=== PATIENT | female | born 1975 | race Caucasian/White ===

== ENCOUNTER → 2018-10-01 08:03 | Outpatient (CLI) | payer OTHER, SELFPAY ==
--- NOTE | 2018-10-01 | DI.MG.S_ITS ---
BILATERAL DIGITAL SCREENING MAMMOGRAM 3D/2D WITH CAD: 10/01/2018 CLINICAL: Routine screening. Family history of breast cancer. No prior exams were available for comparison. The tissue of both breasts is extremely dense, which lowers the sensitivity of mammography. Current study was also evaluated with a Computer Aided Detection (CAD) system. No significant masses, calcifications, or other findings are seen in either breast. IMPRESSION: NEGATIVE There is no mammographic evidence of malignancy. A 1 year screening mammogram is recommended. This exam was interpreted at Station ID: [id number]. NOTE: For mammograms, a report in lay terms will be sent to the patient. Approximately 15% of breast malignancies will not be visualized mammographically. In the management of a palpable breast mass, a negative mammogram must not discourage biopsy of a clinically suspicious lesion. Electronically Signed By: Doris francois/kingston:10/01/2018 10:28:41 letter sent: Normal Exam ACR BI-RADS Category 1: Negative 3341F
== END ==
PROVIDERS: PCP Naturopath; Visit Provider Nurse Practitioner Obstetrics & Gynecology
DX: Z12.31 Encounter for screening mammogram for malignant neoplasm of breast (principal); Z80.3 Family history of malignant neoplasm of breast
CPT/HCPCS: 77063; 77067

== ENCOUNTER → 2020-02-10 13:05 | Outpatient (CLI) | payer SELFPAY ==
[2020-02-11 12:12] LABS: SARS-CoV19- IgM Negative (Negative)
== END ==
PROVIDERS: PCP Naturopath; Referring Provider Naturopath; Visit Provider Naturopath
DX: Z71.1 Person with feared health complaint in whom no diagnosis is made (principal)
CPT/HCPCS: 36415; 86769

== ENCOUNTER → 2020-09-09 16:08 | Outpatient (CLI) | payer OTHER, SELFPAY ==
[2020-09-09] MEDS: COVID-19 VACC(MODERNA-1)/PF 100 MCG/0.5 ML VIAL IM (16:19)
== END ==
PROVIDERS: PCP Naturopath; Visit Provider Internal Medicine
DX: Z23 Encounter for immunization (principal)
CPT/HCPCS: 0011A; 91301

== ENCOUNTER → 2020-10-06 14:54 | Outpatient (CLI) | payer OTHER, SELFPAY ==
[2020-10-06] MEDS: COVID-19 VACC #2, MRNA(MOD) 100 MCG/0.5 ML VIAL IM (15:01)
== END ==
PROVIDERS: PCP Naturopath; Visit Provider Internal Medicine
DX: Z23 Encounter for immunization (principal)
CPT/HCPCS: 0012A; 91301

== ENCOUNTER → 2021-10-10 10:59 | Outpatient (CLI) | payer OTHER, SELFPAY ==
--- NOTE | 2021-10-10 | DI.MG.S_ITS ---
BILATERAL DIGITAL SCREENING MAMMOGRAM 3D/2D WITH CAD: 10/10/2021 CLINICAL: Routine screening. Family history of breast cancer. Comparison is made to exam dated: 10/01/2018 [facility]. The tissue of both breasts is extremely dense, which lowers the sensitivity of mammography. Current study was also evaluated with a Computer Aided Detection (CAD) system. No significant masses, calcifications, or other findings are seen in either breast. There has been no significant interval change. IMPRESSION: NEGATIVE There is no mammographic evidence of malignancy. A 1 year screening mammogram is recommended. This exam was interpreted at Station ID: [id number]. NOTE: For mammograms, a report in lay terms will be sent to the patient. Approximately 15% of breast malignancies will not be visualized mammographically. In the management of a palpable breast mass, a negative mammogram must not discourage biopsy of a clinically suspicious lesion. Electronically Signed By: Marcello valdivia/kingston:10/10/2021 11:28:42 letter sent: Normal Exam ACR BI-RADS Category 1: Negative 3341F
== END ==
PROVIDERS: PCP Internal Medicine; Referring Provider Internal Medicine; Visit Provider Internal Medicine
DX: Z12.31 Encounter for screening mammogram for malignant neoplasm of breast (principal); Z80.3 Family history of malignant neoplasm of breast
CPT/HCPCS: 77063; 77067

== ENCOUNTER → 2021-10-25 09:30 | Outpatient (CLI) | payer OTHER, SELFPAY ==
[2021-10-25 11:03] LABS: COVID19 -Nasal RAPID Negative (Negative)
== END ==
PROVIDERS: PCP Internal Medicine; Visit Provider Surgery
DX: Z01.812 Encounter for preprocedural laboratory examination (principal); Z20.822 Contact with and (suspected) exposure to COVID-19
CPT/HCPCS: 87635; C9803

== ENCOUNTER 2021-10-26 08:47 | Day surgery (SDC) | payer OTHER, SELFPAY ==
[2021-10-26] VITALS (7 sets, daily range): BP systolic 103–163; BP diastolic 61–84; PULSE 65–104; RESP 10–18; TEMP 36.7–37.2; O2SAT 65–100; BMI 24.3
--- NOTE | 2021-10-26 | PATH_ITS ---
[facility] Accession Number: [id number] . 01 Material submitted: . colon - DESCENDING COLON . 02 Diagnosis: Descending Colon, Biopsy: Tubular adenoma. MRV 10/30/2021 1042 Local . 02 Electronically signed: . Kenyatta Adams MD, Pathologist NPI- [id number] . 01 Gross description: . DESCENDING COLON: Received in formalin is 1 fragment(s) of valladares, soft tissue measuring 0.2 x 0.1 x 0.1 cm submitted entirely in 1 cassette(s) /CPE 10/27/2021 1037 Local . 02 Pathologist provided ICD-10: D12.4 . 02 CPT . 385589 Performed at: 01 [facility] [address] [id number] MD Hermelindo Ward MD Phone: [phone] Performed at: 02 [facility] [address] [place], [place] [id number] MD Kenyatta Adams MD Phone: [phone]
[2021-10-26] MEDS: LACTATED RINGERS 1,000 ML 84 ML IV (09:24)
--- NOTE | 2021-10-26 09:32 | PM.HP.1 ---
History of Present Illness History of Present Illness Date Patient Seen: 10/26/21 Time Patient Seen: 09:33 Chief complaint: DX COLONOSCOPY Narrative: Sarah is a 46-year-old woman who had a recent positive Cologuard test. Has no significant family history. She has not had noticeably bloody black stools. She has fairly regular with bowel movements Patient History Family & Social History Social History: household members spouse Tobacco & Substance use: Smoking Status Never smoker alcohol intake never Substance Use Type does not use Meds Home Medications and Allergies Home Medications Medication Instructions Recorded Confirmed Type thyroid 32.5 mg PO DAILY 10/26/21 10/26/21 History Allergies Allergy/AdvReac Type Severity Reaction Status Date / Time No Known Drug Allergies Allergy Verified 10/26/21 09:25 Exam Vital Signs (past 8 hours): - 10/26/21 09:05 Temperature 99 F Pulse Rate 104 H Respiratory Rate 18 Blood Pressure 163/84 H Pulse Oximetry 100 Oxygen Delivery Method Room Air Const General: healthy appearing Resp Effort & Inspection: normal respiratory effort GI Inspection: normal to inspection Assessment & Plan Assessment and plan (1) Positive colorectal cancer screening using Cologuard test: Status: Acute Plan 46-year-old woman with a positive Cologuard test. Risks and benefits of colonoscopy reviewed. She would like to proceed. COVID-19 COVID-19 status: Negative Result date/Date tested (Pos, Neg/Pending): 10/25/21 Time Spent With Patient Critical Care time: I spent a total of [] minutes of critical care time on this patient's care today; this time is exclusive of procedural time.
[2021-10-26] MEDS: MIDAZOLAM 5 MG/5 ML VIAL IV (09:42)
[2021-10-26] MEDS: fentaNYL 250 MCG/5 ML INJ IV (09:43)
--- NOTE | 2021-10-26 10:18 | PM.OP.COLON ---
Operative Date/Time/Diagnoses Date of procedure: 10/26/21 Time of procedure: 10:18 Pre-op diagnosis: Positive Cologuard test Post-op diagnosis: same Procedure & Clinicians Study performed: Colonoscopy Same procedure as scheduled: Yes Indications: Positive Cologuard test Surgeon: Bobby Frazier Procedure Notes SCOAP/Timeout: Yes Procedure in detail: Procedure: The patient was brought to the endoscopy suite, placed in left lateral decubitus position. The patient was connected to monitoring devices. A time-out was performed. Sedation was administered. Once the patient was adequately sedated, a digital rectal exam was performed and was normal. The scope was then inserted and advanced to the cecum where the appendiceal orifice was identified and photographed. The scope was then slowly withdrawn over greater than 6 minutes. Mucosa was thoroughly inspected. There was 1 diminutive polyp in the descending colon removed with cold forceps. The scope was retroflexed in the rectum. The mucosa in the distal rectum was well vascularized. The scope was straightened and removed. The patient was awakened and brought to recovery. Versed: 10 mg Fentanyl: 225 mcg EBL: 0 Findings: 1 small descending colon polyp Scope withdrawal time: 12 Sedation minutes: 33 Post-procedure Recommendations: Colonoscopy in 10 years Disposition: PACU
== END 2021-10-26 11:09 | disposition home or self-care (01) ==
PROVIDERS: PCP Internal Medicine; Referring Provider Surgery; Visit Provider Surgery
PROC: 0DJD8ZZ Inspection of Lower Intestinal Tract, Via Natural or Artificial Opening Endoscopic (ICD-10-PCS; CPT 45378; principal; 2021-10-26 09:45)
DX: R19.5 Other fecal abnormalities (principal); D12.4 Benign neoplasm of descending colon
CPT/HCPCS: 45380; 99152; 99153; J2250; J3010

== ENCOUNTER → 2023-01-16 16:49 | Outpatient (CLI) | payer OTHER, SELFPAY ==
--- NOTE | 2023-01-16 | DI.US.S_ITS ---
PROCEDURE: US PELVIC COMPLETE INDICATIONS: EXCESSIVE AND FREQUENT BLEEDING TECHNIQUE: Real-time scanning was performed of the pelvic organs, with image documentation. Additional endovaginal scanning was necessary due to incomplete visualization of the adnexal and endometrial structures by transabdominal scanning. COMPARISON: [facility], , PELVIC COMPLETE, 08/18/2014, 12:49. FINDINGS: Uterus: Uterus is anteverted and mildly enlarged in size at 8.7 x 5 x 5.4 cm. The myometrium is heterogeneous. 3.3 x 2.9 x 1.9 cm subserosal fibroid in right anterior myometrium is seen not significantly changed from prior study. 3 x 2.9 x 2.8 cm submucosal fibroid in mid myometrium is also noted new since previous study. The endometrium measures 37.1 mm combined thickness. Heterogeneous endometrial echotexture is seen. No definite discrete endometrial mass or fluid is seen. Ovaries: The right ovary measures 2.8 x 1.6 x 1.5 cm, with a calculated ovarian volume of 3.6 cc. The left ovary measures 3.3 x 1.9 x 1.4 cm, with a calculated ovarian volume of 4.7 cc. The ovaries have a normal sonographic appearance. Less than 12 follicles can be seen in each ovary. No adnexal masses are seen. Other: No pathologic free abdominal or pelvic fluid. IMPRESSION: 1. Mildly enlarged uterus containing 2 uterine fibroids as described above. 2. Evaluation of endometrium is slightly limited due to distortion from adjacent uterine fibroid. Suggestion of thickened and heterogeneous appearing endometrium measures up to 3.7 cm in combined thickness. Underlying endometrial mass cannot be excluded. Apprentice Pattern Maker correlation is recommended. 3. Normal appearing bilateral ovaries. We strive to produce accurate, complete, and clear reports of imaging services. To assist us in improving patient care, this report was composed using standard report templates and voice recognition software. Therefore, it may contain abnormal punctuation, insertions and/or omissions. Occasional wrong-word or sound-alike substitutions may occur. Though we review the report and make efforts to correct it, we do recommend that the report be read carefully in proper context to recognize any text inaccuracies. Dictated by: Trae Burciaga M.D. on 01/16/2023 at 17:38 Approved by: Trae Burciaga M.D. on 01/16/2023 at 17:41
== END ==
PROVIDERS: PCP Internal Medicine; Referring Provider Internal Medicine; Visit Provider Internal Medicine
DX: N92.0 Excessive and frequent menstruation with regular cycle (principal); D25.0 Submucous leiomyoma of uterus; N85.2 Hypertrophy of uterus
CPT/HCPCS: 76830; 76856

== ENCOUNTER 2023-01-25 10:50 | Day surgery (SDC) | payer OTHER, SELFPAY ==
[2023-01-25] VITALS (7 sets, daily range): BP systolic 114–155; BP diastolic 57–89; PULSE 69–94; RESP 11–16; TEMP 36.8–36.9; O2SAT 98–100; BMI 23.8
--- NOTE | 2023-01-25 | PATH_ITS ---
[facility] Accession Number: [id number] No. of containers..02 Tissue . 01 Material submitted: . PART A: endometrium - ENDOMETRIAL CURRETING PART B: skin - SUBMUCOSAL FIBROID . 01 Diagnosis: A. Endometrial Curetting: Histologic features suggestive of benign endometrial polyp. Mixed weakly proliferative and early secretory endometrium. No atypical hyperplasia and no malignancy. . B. Submucosal Fibroid, Curetting: Benign smooth muscle consistent with leiomyoma. Early secretory endometrium. No atypical hyperplasia or malignancy. [facility] 02/04/2023 1228 Local . 01 Electronically signed: . Chelsea Brennan MD, Pathologist NPI- [id number] . 01 Gross description: . Part A: ENDOMETRIAL CURRETING: Received in formalin are minute fragments of mucoid and hemorrhagic material measuring 0.5 x 0.5 x 0.2 cm in aggregate. Submitted in toto in 1 cassette. Part B: SUBMUCOSAL FIBROID: Received in formalin are minute fragments of mucoid and hemorrhagic material measuring 2.0 x 2.0 x 0.4 cm in aggregate. Submitted in toto in 2 cassettes. /ROZINA 01/30/2023 1842 Local . 01 Pathologist provided ICD-10: N84.0, D25.9, N92.1 . 01 CPT . 245111, 140307 Specimen Comment: A courtesy copy of this report has been sent to [phone] Performed at: 01 [facility] [address] [place] [id number] MD Hermelindo Ward MD Phone: [phone]
--- NOTE | 2023-01-25 12:40 | SUR.OPER ---
Lithotomy on padded OR bed, head on pillow, arms secured on padded arm boards at <90 degrees abduction. Legs secured in padded yellow fins stirrups.
--- NOTE | 2023-01-25 12:57 | PM.GYNHP.1 ---
History of Present Illness History of Present Illness Reason for admission: vaginal bleeding Narrative: Sarah Fregoso is a 47 year old female 1 para 1 who presents for a D&C hysteroscopy, possible polypectomy, and Mirena IUD placement. This is being done due to menorrhagia and a 3.7 cm endometrial lining. [facility] Surgical History (Updated 01/25/23 @ 12:59 by Eladia Uribe MD) History of section Hx of colonoscopy with polypectomy (10/26/21) [place] teeth extracted Social History household members: spouse Smoking Status: Never smoker alcohol intake: never Meds Home Medications and Allergies Home Medications Medication Instructions Recorded Confirmed Type thyroid 32.5 mg PO DAILY 10/26/21 01/25/23 History Allergies Allergy/AdvReac Type Severity Reaction Status Date / Time No Known Drug Allergies Allergy Verified 01/25/23 11:09 Exam Vital Signs (past 8 hours): - 01/25/23 11:12 Temperature 98.2 F Pulse Rate 94 H Respiratory Rate 16 Blood Pressure 155/89 H Pulse Oximetry 99 Oxygen Delivery Method Room Air Oxygen Delivery Method Room Air Narrative Exam Narrative: HEENT: No thyromegaly, no anterior cervical or supraclavicular lymphadenopathy. Lungs:Clear to auscultation bilaterally, no wheezes. Cardiovascular: Regular rate and rhythm, no murmurs, rubs, or gallops. Abdomen: Well-healed midline scar. No hepatosplenomegaly. No masses palpable. External genitalia: Normal Vagina: Normal Cervix: Normal Bimanual exam: 9 Week size uterus. Mobile. Extremities: No edema Assessment & Plan Assessment & Plan narrative: Assessment: 47-year-old 1 para 1 with menorrhagia and endometrial hyperplasia Plan: D&C hysteroscopy with possible polypectomy and Mirena IUD placement The risks, benefits, and alternatives to the procedure were explained to the patient. The risks including bleeding, infection, and uterine perforation. She understands these risks and agrees to proceed. A full par Q was held and consent form was signed. Time Spent With Patient Time with patient: less than 30 minutes
--- NOTE | 2023-01-25 13:01 | PM.PREOP ---
Pre-operative Note COVID-19 Criteria for continued procedure: Delay expected to result in less-positive ultimate med/surg outcome Interval Note History & Physical reviewed/Exam performed by Physician: Yes Changes to H&P: No H&P completed within 30 days and has changed as indicated here:: 01/25/23
--- NOTE | 2023-01-25 13:52 | P.OP_ITS ---
Operative Date/Time/Diagnoses Date of procedure: 01/25/23 Time of procedure: 13:53 Pre-op diagnosis: Menometrorrhagia Thickened endometrial lining Post-op diagnosis: same Procedure & Clinicians Procedure: Procedures Operation Date: 01/25/23 12:15 Actual Procedure Side Surgeon jose Philip&Michaelle Hysteroscopy with resection of submucousal fibroid, Mirena IUD placement Eladia Uribe MD Indications: Menometrorrhagia Surgeon: Eladia Uribe Anesthesia Type: General (LMA) Operative Notes Findings: 8 week size anteverted uterus 2cm fundal submucosal fibroid Both fallopian tube ostia observed Closure Type: not applicable Specimen(s): endometrial curettings and other (submucosal fibroid) Estimated blood loss (mL): 15 Blood products transfused: none Procedure in detail: After informed consent was obtained, the patient was taken to the operating room where she was placed in the supine after adequate LMA anesthesia, she was placed in the dorsal lithotomy position, and prepped draped in the usual sterile fashion. A time-out was performed. A bivalve speculum placed into vagina the anterior lip cervix grasped with single-tooth tenaculum. Cervical os sequentially dilated to the #9 Hegar dilator. The hysteroscope passed easily into the endometrial cavity. There was no polyp visualized. There was a fundal submucosal fibroid. The hysteroscope was removed. Gentle sharp curettage was performed yielding a moderate amount of endometrial curetting. The resectoscope was then placed into the endometrial cavity. With settings at 80 W cut and 60 W cautery, the submucosal fibroid was excised an approximately 20 pieces. The instruments were removed from the uterus. The Mirena IUD passed easily into the endometrial cavity fundus and was released. The strings were cut 1.5 cm. sees tenaculum was removed from the cervix. Hawthorne speculum was removed from the vagina. Sponge, lap, and instrument counts were correct x2. Patient tolerated the procedure well, and was taken to PACU in stable condition. Complications: none Post-operative Condition: stable Disposition: PACU Plan for aftercare: Home after recovery
[2023-01-25] MEDS: LACTATED RINGERS 1,000 ML 100 ML IV (14:00)
== END 2023-01-25 14:40 | disposition home or self-care (01) ==
PROVIDERS: PCP Internal Medicine; Referring Provider Obstetrics & Gynecology; Visit Provider Obstetrics & Gynecology
PROC: 0UDB8ZZ Extraction of Endometrium, Via Natural or Artificial Opening Endoscopic (ICD-10-PCS; CPT 58558; principal; 2023-01-25 12:15)
DX: N92.1 Excessive and frequent menstruation with irregular cycle (principal); D25.0 Submucous leiomyoma of uterus
CPT/HCPCS: 58561; 58120; 58300; J1100; J1885; J2250; J2405; J2704; J3010

== ENCOUNTER → 2023-07-29 15:53 | Outpatient (CLI) | payer OTHER, SELFPAY ==
[2023-07-29 16:45] LABS: Add Manual Diff / Slide Review NO; Basophils Absolute Auto 100 /uL (0-100); Basophils Percent Auto 1.1 % (0-2); Eosinophils Absolute Auto 100 /uL (0-450); Hematocrit 39.1 % (36-46); Hemoglobin 13.7 g/dL (12.0-16.0); Lymphocytes Absolute Auto 1600 /uL (1100-4500); Lymphocytes Percent Auto 23.9 % (25-40); Mean Corpuscular HGB Conc 35.2 % (30-36); Mean Corpuscular Hemoglobin 31.4 PG (26-34); Mean Corpuscular Volume 89.3 fL (80-100); Monocytes Absolute Auto 400 /uL (0-900); Monocytes Percent Auto 5.6 % (3-14); Neutrophils Absolute Auto 4400 /uL (1500-7000); Neutrophils Percent Auto 67.4 % (50-75); Platelet Count 339 X10^3/uL (150-400); Red Blood Cell Count 4.38 X10^6/uL (4.0-5.2); Red Cell Distribution Width 13.3 % (11.6-14.8); White Blood Cell Count 6.5 X10^3/uL (4.5-11.0)
[2023-07-29 17:03] LABS: HEMOLYSIS < 15 (0-50); Iron 89 ug/dL (37-170)
[2023-07-29 17:13] LABS: Percent Iron Saturation 31 % (15-50); Total Iron Binding Capacity 284 ug/dL (265-497); Transferrin 257 mg/dL (206-381)
[2023-07-29 17:33] LABS: Ferritin 19 ng/mL (6-137)
== END ==
PROVIDERS: PCP Internal Medicine; Referring Provider Student in an Organized Health Care Education/Training Program; Visit Provider Student in an Organized Health Care Education/Training Program
DX: Z86.2 Personal history of diseases of the blood and blood-forming organs and certain disorders involving the immune mechanism (principal); Z86.39 Personal history of other endocrine, nutritional and metabolic disease
CPT/HCPCS: 36415; 82728; 83540; 83550; 85025

== ENCOUNTER → 2023-08-12 12:13 | Outpatient (CLI) | payer OTHER, SELFPAY ==
--- NOTE | 2023-08-12 12:15 | DI.US.S_ITS ---
PROCEDURE: US PELVIC COMPLETE INDICATIONS: heavy vaginal bleeding, Mirena IUD in place TECHNIQUE: Real-time scanning was performed of the pelvic organs, with image documentation. Additional endovaginal scanning was necessary due to incomplete visualization of the adnexal and endometrial structures by transabdominal scanning. COMPARISON: [facility], US, US PELVIC COMPLETE, 01/16/2023, 17:06. [facility], US, US PELVIC COMPLETE, 07/29/2023, 15:51. FINDINGS: Uterus: Uterus is anteverted and mildly enlarged at 10.7 x 5.1 x 4.7 cm. The myometrium is heterogeneous. The endometrium measures 9 mm mm combined thickness. The endometrium is distorted by fibroids. Intrauterine device in place and appears low within the lower uterine segment. Stable uterine fibroids including a right subserosal fibroid measuring 2.7 cm in a mid submucosal fibroid measuring 2.9 cm. Minimal fluid within the endometrial canal adjacent to the submucosal fibroid. Ovaries: The right ovary measures 2.9 x 2.2 x 1.2 cm, with a calculated ovarian volume of 4 cc. The left ovary measures 5.8 x 4.6 x 4.0 cm, with a calculated ovarian volume of 55 cc. Complex septated left ovarian cyst measuring 3.9 x 4.5 x 3.9 cm. The ovaries have a normal sonographic appearance. Less than 12 follicles are seen per ovary. No adnexal masses are seen. Other: No pathologic free abdominal or pelvic fluid. IMPRESSION: 1. Intrauterine device in place and is low within the lower uterine segment. 2. Complex left ovarian cyst measuring 4.5 cm. Recommend 6-12 week follow-up ultrasound. 3. Redemonstration of uterine fibroids including a submucosal fibroid which obscures the endometrial echo complex. Endometrium appears normal in thickness at 9 mm. We strive to produce accurate, complete, and clear reports of imaging services. To assist us in improving patient care, this report was composed using standard report templates and voice recognition software. Therefore, it may contain abnormal punctuation, insertions and/or omissions. Occasional wrong-word or sound-alike substitutions may occur. Though we review the report and make efforts to correct it, we do recommend that the report be read carefully in proper context to recognize any text inaccuracies. Dictated by: Bernabe Singh M.D. on 08/12/2023 at 14:07 Approved by: Bernabe Singh M.D. on 08/12/2023 at 14:12
== END ==
PROVIDERS: PCP Internal Medicine; Referring Provider Student in an Organized Health Care Education/Training Program; Visit Provider Student in an Organized Health Care Education/Training Program
DX: N93.9 Abnormal uterine and vaginal bleeding, unspecified (principal); D25.2 Subserosal leiomyoma of uterus; D25.0 Submucous leiomyoma of uterus; N83.292 Other ovarian cyst, left side; Z97.5 Presence of (intrauterine) contraceptive device
CPT/HCPCS: 76830; 76856; 93975

== ENCOUNTER → 2023-09-03 12:46 | Outpatient (CLI) | payer OTHER, SELFPAY ==
--- NOTE | 2023-09-03 | DI.MG.S_ITS ---
BILATERAL DIGITAL SCREENING MAMMOGRAM 3D/2D WITH CAD: 09/03/2023 CLINICAL: Routine screening. Family history of breast cancer. Comparison is made to exams dated: 10/10/2021 mammogram and 10/01/2018 mammogram - [facility]. Both breasts are extremely dense, which lowers the sensitivity of mammography (category d />75% glandular tissue). Current study was also evaluated with a Computer Aided Detection (CAD) system. No significant masses, calcifications, or other findings are seen in either breast. There has been no significant interval change. IMPRESSION: NEGATIVE There is no mammographic evidence of malignancy. A 1 year screening mammogram is recommended. Based on Tyrer-Cuzick model (a risk assessment model), the patient's lifetime risk is 43.7% and her 10 year risk is 11.5%. If a patient has an elevated risk, a more comprehensive evaluation should be considered and/or a referral to a genetic counselor. The [place] [employer], [place] [employer], and NCCN Guidelines advise the consideration of Breast MRI as an adjunct to screening mammography in patients whose Lifetime risk to develop breast cancer is 20% or higher. This exam was interpreted at Station ID: [id number]. NOTE: For mammograms, a report in lay terms will be sent to the patient. Approximately 15% of breast malignancies will not be visualized mammographically. In the management of a palpable breast mass, a negative mammogram must not discourage biopsy of a clinically suspicious lesion. Electronically Signed By: Arun luna/kingston:09/03/2023 16:26:53 letter sent: Normal Exam ACR BI-RADS Category 1: Negative 3341F
== END ==
PROVIDERS: PCP Internal Medicine; Referring Provider Internal Medicine; Visit Provider Internal Medicine
DX: Z12.31 Encounter for screening mammogram for malignant neoplasm of breast (principal); Z80.3 Family history of malignant neoplasm of breast
CPT/HCPCS: 77063; 77067

== ENCOUNTER → 2024-01-03 15:31 | Outpatient (CLI) | payer OTHER, SELFPAY ==
[2024-01-03 17:22] LABS: Hematocrit 37.3 % (36-46); Hemoglobin 12.8 g/dL (12.0-16.0); Mean Corpuscular HGB Conc 34.4 % (30-36); Mean Corpuscular Volume 90.1 fL (80-100); Platelet Count 369 X10^3/uL (150-400); Red Blood Cell Count 4.14 X10^6/uL (4.0-5.2); Red Cell Distribution Width 13.1 % (11.6-14.8); White Blood Cell Count 7.8 X10^3/uL (4.5-11.0)
[2024-01-03 18:19] LABS: Ferritin 38 ng/mL (6-137)
== END ==
PROVIDERS: PCP Internal Medicine; Referring Provider Obstetrics & Gynecology; Visit Provider Obstetrics & Gynecology
DX: N92.0 Excessive and frequent menstruation with regular cycle (principal)
CPT/HCPCS: 36415; 82728; 85027

== ENCOUNTER 2024-05-18 07:24 | Day surgery (SDC) | payer OTHER, SELFPAY ==
[2024-05-12 14:18] VITALS: BMI 23.3
--- NOTE | 2024-05-18 | PATH_ITS ---
[facility] Accession Number: [id number] No. of containers..02 Tissue . 01 Material submitted: . PART A: endometrium - ENDOMETRIAL CURETTINGS PART B: body - PORTIONS OF A SUBMUCOSAL FIBROID . 01 Diagnosis: A. Designated as Endometrial curetting: - Benign smooth muscle consistent with leiomyoma (mucosal/submucosal). - Benign proliferative endometrium in the background. - Negative for hyperplasia, atypia, or malignancy. - See comment and microscopic examination. -- B. Designated as portions of submucosal fibroid - Benign proliferative endometrium. - Negative for hyperplasia, atypia, or malignancy. - See comment. -- Comment: Part B was designated as portions of submucosal fibroid, however histologic examination shows only benign proliferative endometrium, no fibroid was seen in part B, however it was seen in part A. -- Microscopic examination: The thickened smooth muscle seen in part A has angélica fascicles architecture with mild atypia, and negative for marked atypia, increased cellularity, mitosis, myxoid changes or necrosis, which is most consistent with benign leiomyoma. TXN 05/20/2024 1216 Local . 01 Electronically signed: . Tawfeq MD Gamal, Pathologist NPI- [id number] . 01 Gross description: . A. Received in formalin with two patient identifiers and endometrial curetting, are multiple valladares soft tissue fragments admixed with hemorrhagic material aggregating to 1.2 x 0.7 x 0.2 cm. Filtered and submitted entirely in A1. B. Received in formalin with two patient identifiers and portions of a submucosal fibroid, are multiple red-brown soft tissue fragments admixed with mucoid material aggregating to 1.3 x 1.1 x 0.1 cm. Filtered and submitted entirely in B1. ([id number]) /MRV 05/19/2024 0837 Local . 01 Pathologist provided ICD-10: D25.9 . 01 CPT . 147490, [id number] Specimen Comment: A courtesy copy of this report has been sent to [phone] Performed at: 01 [facility] [address], [place], [place] [id number] MD Hermelindo Ward MD Phone: [phone]
[2024-05-18] MEDS: LACTATED RINGERS 1,000 ML 42 ML IV (07:42)
[2024-05-18] MEDS: ACETAMINOPHEN 325 MG TABLET 975 MG PO (07:42)
[2024-05-18 07:45] VITALS: BP 141/79; PULSE 80; RESP 17; TEMP 36.9; O2SAT 100; BMI 23.2
--- NOTE | 2024-05-18 08:53 | PM.GYNHP.1 ---
History of Present Illness History of Present Illness Reason for admission: vaginal bleeding (Menorrhagia) Narrative: Sarah Fregoso is a 48 year old female 1 para 1 who presents for a D&C hysteroscopy with NovaSure endometrial ablation. This is being done due to menorrhagia. Patient has fibroids. She has had a D&C with a Mirena IUD placement. The IUD migrated to the lower uterine segment. It was removed and replaced. The second IUD fell out with heavy bleeding. [facility] Medical History (Updated 09/05/23 @ 16:53 by Eladia Uribe MD) History of iron deficiency anemia Surgical History (Updated 05/12/24 @ 14:21 by Emma Gilbert RN) History of hysteroscopy (01/23/23) [place] teeth extracted History of section Hx of colonoscopy with polypectomy (10/26/21) Social History household members: spouse Smoking Status: Never smoker alcohol intake: never Meds Home Medications and Allergies Home Medications Medication Instructions Recorded Confirmed Type thyroid 32.5 mg PO DAILY 10/26/21 05/18/24 History progesterone micronized 100 mg 100 mg PO QAM #90 caps 01/03/24 05/18/24 Rx capsule (Prometrium) Allergies Allergy/AdvReac Type Severity Reaction Status Date / Time No Known Drug Allergies Allergy Verified 05/18/24 07:40 Exam Vital Signs (past 8 hours): - 05/18/24 07:45 Temperature 98.5 F Pulse Rate 80 Respiratory Rate 17 Blood Pressure 141/79 H Pulse Oximetry 100 Oxygen Delivery Method Room Air Oxygen Delivery Method Room Air Narrative Exam Narrative: HEENT: No thyromegaly, no anterior cervical or supraclavicular lymphadenopathy. Lungs:Clear to auscultation bilaterally, no wheezes. Cardiovascular: Regular rate and rhythm, no murmurs, rubs, or gallops. Abdomen: Well-healed Pfannenstiel scar. No hepatosplenomegaly. No masses palpable. External genitalia: Normal Vagina: Normal Cervix: Normal Bimanual exam: 10 Week size anteverted uterus. Mobile. Extremities: No edema Assessment & Plan Assessment & Plan narrative: Assessment: 48-year-old 1 para 1 with persistent menorrhagia despite trials with IUD and D and C Fibroid uterus Patient desires to keep her uterus Plan: D&C hysteroscopy with NovaSure endometrial ablation The risks, benefits, and alternatives to the procedure were explained to the patient. The risks including bleeding, infection, and uterine perforation. She understands these risks and agrees to proceed. A full par Q was held and consent form was signed. Time-Based Coding :: [TOTAL MINUTES] spent with patient and on the chart (including review of chart, obtaining history, exam, reviewing outside data, placing orders, documenting exam and treatment plan, and counseling patient) on [DATE].
--- NOTE | 2024-05-18 09:01 | PM.PREOP ---
Pre-operative Note Interval Note History & Physical reviewed/Exam performed by Physician: Yes Changes to H&P: No H&P completed within 30 days and has changed as indicated here:: 05/18/24
--- NOTE | 2024-05-18 09:07 | SUR.OPER ---
Lithotomy on padded OR bed, head on pillow, arms secured on padded arm boards at <90 degrees abduction. Legs secured in padded yellow fins stirrups.
--- NOTE | 2024-05-18 09:48 | PM.GYNOP.1 ---
Operative Date/Time/Diagnoses Date of procedure: 05/18/24 Time of procedure: 09:48 Pre-op diagnosis: Persistent menorrhagia Fibroid uterus Post-op diagnosis: same Procedure & Clinicians Procedure: Procedures Operation Date: 05/18/24 09:00 Actual Procedure Side Surgeon p Dilation and Curettage, hysteroscopy, partial resection of a fibroid, novasure endometrial ablation Eladia Uribe MD Indications: 48-year-old 1 para 1 with persistent menorrhagia despite to IUD attempts and a D&C hysteroscopy. She has a fibroid uterus but wishes to retain her uterus. Surgeon: Eladia Urieb Anesthesia Type: General (LMA) Operative Notes Findings: 10 week size multifibroid uterus 1.5 cm submucosal fundal fibroid Both fallopian tube ostia observed Length of the uterus: 5.5 cm Width of the uterus: 3.5 cm Power: 106 w Ablation time: 1 minutes and 2 seconds MyoSure deficit 365 cc. Total fluid 1775 cc. Max pressure 80 mmHg. Cutting time 65 seconds. Closure Type: not applicable Specimen(s): endometrial curettings and other (Portions of submucosal fibroid) Estimated blood loss (mL): 10 Blood products transfused: none Procedure in detail: After informed consent was obtained, the patient was taken to the operating room where she was placed in the dorsal supine position. After adequate LMA general anesthesia was achieved, she was placed in the dorsal lithotomy position, and prepped and draped in the usual sterile fashion. A time-out was performed. A bivalve speculum was placed into the vagina and the anterior lip of the cervix was grasped with a single-tooth tenaculum. The cervical os was sequentially dilated to the # 8 Hegar dilator. The hysteroscope passed easily into the endometrial cavity. Both fallopian tube ostia were observed. There was a small fundal submucosal fibroid. A portion of this was resected with the MyoSure. The hysteroscope was removed from the uterus. Gentle sharp curettage was performed yielding minimal amount of tissue. The uterus was measured from the internal os to the fundus and measured 5.5 cm. This was set on the NovaSure catheter and the generator. The NovaSure catheter passed easily into the endometrial cavity and was opened. The width was 3.5 cm. This was set on the generator. This indicated a power of 106 w. The cervix was capped, the cavity assessment was performed and passed. The cycle was initiated and lasted 1 minute and 2 seconds. The cervix was uncapped, the NovaSure catheter was closed and removed from the uterus. The single-tooth tenaculum was removed from the anterior lip of the cervix. The bivalve speculum was removed from the vagina. Sponge, lap, and instrument counts were correct x2. The patient tolerated the procedure well, and was taken to PACU in stable condition. MyoSure: 365cc deficit. 1775cc total fluid. Max pressure: 80mmHg. Cutting time: 65 sec. Complications: none Post-operative Condition: stable Disposition: PACU Plan for aftercare: Home after recovery
[2024-05-18 09:53] VITALS: BP 121/56; PULSE 70; RESP 15; TEMP 36.3; O2SAT 98
[2024-05-18 09:58] VITALS: BP 129/66; PULSE 83; RESP 17; O2SAT 98
[2024-05-18 10:03] VITALS: BP 132/78; PULSE 78; RESP 12; TEMP 36.4; O2SAT 98
[2024-05-18 10:10] VITALS: BP 140/73; PULSE 88; RESP 13; O2SAT 99
== END 2024-05-18 10:46 | disposition home or self-care (01) ==
PROVIDERS: PCP Internal Medicine; Referring Provider Obstetrics & Gynecology; Visit Provider Obstetrics & Gynecology
PROC: 0U5B8ZZ Destruction of Endometrium, Via Natural or Artificial Opening Endoscopic (ICD-10-PCS; CPT 58563; principal; 2024-05-18 09:00)
DX: N92.0 Excessive and frequent menstruation with regular cycle (principal); D25.0 Submucous leiomyoma of uterus
CPT/HCPCS: 58563; J1100; J1885; J2405; J2704; J3010

== ENCOUNTER → 2024-11-10 17:03 | Outpatient (CLI) | payer OTHER, SELFPAY ==
--- NOTE | 2024-11-10 17:05 | DI.MG.S_ITS ---
MM screening mammo BI: 11/10/2024. BI-RADS: 1 CLINICAL: 49-year old female for bilateral screening mammogram. Tyrer-Cuzick lifetime risk of 30.7%. Current reported family history of breast cancer: mother. PRIOR EXAMS 09/03/2023, 10/10/2021, 10/01/2018. MAMMOGRAPHY TECHNIQUE: 2D and 3D (tomosynthesis) digital mammographic views obtained, with additional images as needed for full coverage. Current study was also evaluated with a Computer Aided Detection (CAD) system. DENSITY D. The breasts are extremely dense, which lowers the sensitivity of mammography. MAMMOGRAPHY FINDINGS Bilateral: No suspicious mass, asymmetry, microcalcification, or other abnormality seen. IMPRESSION: * No evidence of malignancy. RECOMMENDATIONS Bilateral * According to the Tyrer-Cuzick Risk Assessment Model, based on the information provided your patient has a greater than 20% lifetime risk for developing breast cancer. Consider supplemental screening with breast MRI and participation in a high risk screening program. * Annual screening mammography. OVERALL ASSESSMENT CATEGORY BI-RADS-1: Negative. The [employer] recommends annual screening mammography beginning at age 40 for women with average risk of breast cancer. ELECTRONICALLY SIGNED: Ab Webb M.D. on 11/11/2024 at 03:04:07 PM PT Interpreting Station ID: [id number]
== END ==
LOC: MAMMO 17:05
PROVIDERS: PCP Registered Nurse; Referring Provider Registered Nurse; Visit Provider Registered Nurse
DX: Z12.31 Encounter for screening mammogram for malignant neoplasm of breast (principal); Z80.3 Family history of malignant neoplasm of breast; R92.343 Mammographic extreme density, bilateral breasts
CPT/HCPCS: 77063; 77067